=== PATIENT | female | born 1980 | race Caucasian/White ===

== ENCOUNTER → 2018-06-18 | Outpatient (CLI) | payer OTHER ==
[~2018-06-18] VITALS: Ht 167.6 cm; Wt 55.8 kg
[~2018-06-18] MED LIST: AMOXICILLIN 25250 MG
[2018-06-18 10:33] VITALS: BP 114/74; PULSE 89
== END ==
LOC: COL.CARD 10:18
DX: I42.9 Cardiomyopathy, unspecified (principal)
CPT/HCPCS: A9502